=== PATIENT | male | born 1970 | race Caucasian/White ===

== ENCOUNTER 2024-03-22 10:37 | Emergency (ER) | payer MEDICARE, MEDICAID, SELFPAY ==
[2024-03-22 10:38] VITALS: BP 144/91; PULSE 79; RESP 12; TEMP 36.6; O2SAT 95
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
[2024-03-22] MEDS: Prazosin 1 MG CAP 2 MG PO (16:11)
[2024-03-22] MEDS: hydrOXYzine HCL 50 MG TAB PO (16:18)
[2024-03-22] MEDS: LORazepam 1 MG TAB PO (16:55)
--- NOTE | 2024-03-22 17:41 | ED.FU.B_ITS ---
Follow Up Plan: Handoff report received from KIANNA Hutton daytime JESSIE. Please see his note for full HPI, PE, ROS, PE, and initial workup. Dalton is a 53 year old male who presented to the ED today for evaluation of passive SI and intrusive thoughts of sexual aggression against females. He is currently living at a [place] organization for mental health called [facility], they have concern that he may need a higher level of care. Dalton has already been evaluated by YOLANDA, is currently awaiting telepsych eval.. Limited physical evaluation during interview with Dalton, patient is alert and oriented, in no acute distress. He does appear somewhat anxious, but is able to discuss options for managing anxiety. Easy work of breathing, normal tone. Moving all extremities equally. Dalton has had anxiety while awaiting telepsych eval; has been given routine afternoon medications and 1 mg lorazepam. Recommended activities to patient to help occupy his mind/provide distraction- RN and tech in [facility] are helping patient with this. Telepsych eval completed, discussed findings with Dr. Campos, psychiatrist. Patient does not endorse any suicidal ideation or intent/plan, says that this was a fleeting thought. He does feel that he is able to remain safe re: sexual aggression, has coping mechanisms in place including peers, determined not to be an acute risk to himself or others. No changes to medication advised at this time. Patient did ask for Ativan prescription, he was told by psychiatry that this was inappropriate for depression. He did recommend establishing connection with community resources. I discussed this with Elyssa, crisis bridal service sales and management. Safety plan was developed with patient, he will be discharged back to [facility] treatment facility, has referral submitted to [facility] for therapy and psychiatry. Reviewed discharge instructions with patient, safety plan included with discharge paperwork RN called [facility]- upon further discussion, Dalton is not able to be accepted back to the facility. Plan was discussed with Elyssa [facility]; Dalton we will stay with his daughter in [place] rather than [facility] (picked up in personal vehicle) Details confirmed by DARIUS Cottrell. He has follow-up scheduled for tomorrow morning at [facility] at 10:30; she advised calling if he will not be able to make appt.
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
== END 2024-03-22 20:50 | disposition home or self-care (01) ==
PROVIDERS: Emergency Provider Nurse Practitioner Family; PCP Nurse Practitioner Family
DX: R45.851 Suicidal ideations (principal); F32.A Depression, unspecified
CPT/HCPCS: 00123; 96127; 99285; 99284; J3490